=== PATIENT | female | born 1955 | race Caucasian/White ===

== ENCOUNTER 2019-09-10 11:33 | Emergency (ER) | payer MEDICARE ==
[~2019-09-10] VITALS: Ht 160 cm; Wt 68.2 kg
[2019-09-10 11:33] VITALS: BP 135/69
[~2019-09-10 11:33] MED LIST: AMIT10TA6 PO; CYAN10006 IM; DOCU-28 PO; DULO60CA45 PO; FERR1GRA2 PO; MAGN30TA2 PO; MORP15TA PO; MULT1TAB74 PO; PHEN-716 PO; PREG50CA PO; SULF1TAB49 PO
[2019-09-10] MEDS ORDERED: HYDROcodone/acetaminophen 10/325mg tab PO ONE (13:05)
[2019-09-10] MEDS ORDERED: ondansetron 4mg rapidly disintigrating tab PO ONE (13:05)
[2019-09-10] MEDS ORDERED: HYDR-4383 PO (13:28)
[2019-09-10] MEDS ORDERED: ONDA4TAB6 PO (13:28)
== END 2019-09-10 13:54 | disposition home or self-care (01) ==
LOC: ER 11:33
DX: S52.502A Unspecified fracture of the lower end of left radius, initial encounter for closed fracture (principal); G89.29 Other chronic pain; M79.7 Fibromyalgia; Z90.49 Acquired absence of other specified parts of digestive tract; Z90.710 Acquired absence of both cervix and uterus; Z98.84 Bariatric surgery status; Z85.3 Personal history of malignant neoplasm of breast; Z91.040 Latex allergy status; Z88.5 Allergy status to narcotic agent; Z88.6 Allergy status to analgesic agent; Z79.899 Other long term (current) drug therapy; W18.30XA Fall on same level, unspecified, initial encounter; Y93.01 Activity, walking, marching and hiking; Y92.89 Other specified places as the place of occurrence of the external cause; Y99.9 Unspecified external cause status
CPT/HCPCS: 29125; 73110; 99284

== ENCOUNTER 2022-02-23 15:31 | Emergency (ER) | payer MEDICARE ==
[~2022-02-23] VITALS: Ht 160 cm; Wt 71.4 kg
[~2022-02-23 15:31] MED LIST changes: -DULO60CA45 PO; +DULO60CA59 PO; +HYDR-4383 PO; +MULT-620 PO; -MULT1TAB74 PO; +ONDA4TAB6 PO
[2022-02-23 16:55] LABS: CLARITY,URINE CLEAR (Clear); GLUCOSE, URINE NEGATIVE (Neg); KETONES,URINE NEGATIVE (Neg); LEUKOCYTE ESTERASE ,URINE NEGATIVE (Neg); NITRITES, URINE NEGATIVE (Neg); OCCULT BLOOD,URINE NEGATIVE (Neg); PROTEIN,URINE NEGATIVE (Neg); UROBILINOGEN,URINE 0.2 E.U/dL (0.2-1.0)
[2022-02-23 17:00] LABS: COLOR,URINE STRAW (Yellow); UA COLLECTION TYPE CLN CATCH MIDSTREAM
[2022-02-23] MEDS ORDERED: HYDR-3965 PO (19:14)
[2022-02-23] MEDS ORDERED: HYDROcodone/acetaminophen 10/325mg tab PO ONE (19:15)
[2022-02-24 00:22] VITALS: BP 122/78
== END 2022-02-24 00:25 | disposition home or self-care (01) ==
LOC: ER 15:32
DX: G89.29 Other chronic pain (principal); M54.6 Pain in thoracic spine; M54.50 Low back pain, unspecified; R32 Unspecified urinary incontinence; M79.7 Fibromyalgia; Z85.3 Personal history of malignant neoplasm of breast; Z90.49 Acquired absence of other specified parts of digestive tract; Z90.710 Acquired absence of both cervix and uterus; Z98.84 Bariatric surgery status; Z72.89 Other problems related to lifestyle; Z88.8 Allergy status to other drugs, medicaments and biological substances; Z91.040 Latex allergy status; Z91.048 Other nonmedicinal substance allergy status; Z79.899 Other long term (current) drug therapy; W01.0XXA Fall on same level from slipping, tripping and stumbling without subsequent striking against object, initial encounter; Y93.89 Activity, other specified; Y92.89 Other specified places as the place of occurrence of the external cause; Y99.8 Other external cause status
CPT/HCPCS: 72128; 81003; 99284

== ENCOUNTER 2023-02-15 12:25 | Emergency (ER) | payer MEDICARE ==
[~2023-02-15] VITALS: Ht 157.5 cm; Wt 68.2 kg
[2023-02-15 12:38] VITALS: BP 163/73
[2023-02-15 13:16] LABS: BASOPHILS % (AUTO) 0.2 % (0-1); EOSINOPHILS % (AUTO) 0.5 % (0-6); HEMATOCRIT 39.5 % (35.0-45.0); HEMOGLOBIN 12.9 g/dl (12.0-16.0); LYMPHOCYTES # (AUTO) 1.5 X10'3 (1.1-4.8); LYMPHOCYTES % (AUTO) 23.7 % (21-51); MEAN CORPUSCULAR HEMOGLOBIN 28.9 PG (27.0-31.0); MEAN CORPUSCULAR HGB CONC 32.6 g/dL (33.0-36.5); MEAN CORPUSCULAR VOLUME 88.5 FL (78-98); MEAN PLATELET VOLUME 8.1 FL (7.4-10.4); MONOCYTES # (AUTO) 0.3 X10'3 (0-0.9); MONOCYTES % (AUTO) 5.3 % (2-12); NEUTROPHILS # (AUTO) 4.5 X10'3 (1.8-7.7); NEUTROPHILS % (AUTO) 70.3 % (42-75); PLATELET COUNT 234 X10'3 (140-440); RED BLOOD COUNT 4.46 X10'6 (4.20-5.60); RED CELL DISTRIBUTION WIDTH 13.8 % (11.5-14.5); WHITE BLOOD COUNT 6.4 X10'3 (4.5-11.0)
[2023-02-15 13:35] LABS: ALANINE AMINOTRANSFERASE 181 U/L (12-78); ALBUMIN 3.8 G/DL (3.4-5.0); ALBUMIN/GLOBULIN RATIO 1.4 (1.1-1.5); ALKALINE PHOSPHATASE 93 IU/L (46-116); ANION GAP 8 (8-16); ASPARTATE AMINO TRANSFERASE 61 U/L (10-37); BILIRUBIN,TOTAL 0.3 MG/DL (0.1-1.0); BLOOD UREA NITROGEN 13 MG/DL (7-18); BUN/CREATININE RATIO 22.8 (10.0-20.0); CALCIUM 9.4 MG/DL (8.5-10.1); CHLORIDE 105 MMOL/L (99-107); CREATININE 0.57 MG/DL (0.40-0.90); GLUCOSE 94 MG/DL (70-104); LIPASE 82 U/L (73-393); POTASSIUM 4.3 MMOL/L (3.5-5.1); SODIUM 140 MMOL/L (135-145); TOTAL CARBON DIOXIDE 27.2 MMOL/L (24-32); TOTAL PROTEIN 6.6 G/DL (6.4-8.2); eGFR > 90 ML/MIN
[2023-02-15] MEDS ORDERED: ondansetron 4mg rapidly disintigrating tab PO ONE (15:40)
[2023-02-15 16:14] LABS: CLARITY,URINE CLEAR (Clear); COLOR,URINE STRAW (Yellow); GLUCOSE, URINE NEGATIVE (Neg); KETONES,URINE 15 mg/dl (Neg); LEUKOCYTE ESTERASE ,URINE NEGATIVE (Neg); NITRITES, URINE NEGATIVE (Neg); OCCULT BLOOD,URINE NEGATIVE (Neg); PROTEIN,URINE NEGATIVE (Neg); UROBILINOGEN,URINE 0.2 E.U/dL (0.2-1.0)
[2023-02-15 16:20] LABS: UA COLLECTION TYPE CLN CATCH MIDSTREAM
[2023-02-15] MEDS ORDERED: DICY10CA88 PO (16:40)
[2023-02-15] MEDS ORDERED: ONDA4TAB12 PO (16:40)
[2023-02-15] MEDS ORDERED: dicyclomine 10 MG capsule PO ONE (16:45)
[2023-02-15] MEDS ORDERED: acetaminophen 325mg tablet PO ONE (16:55)
== END 2023-02-15 17:07 | disposition home or self-care (01) ==
LOC: ER 12:25
DX: R10.11 Right upper quadrant pain (principal); G89.29 Other chronic pain; M54.9 Dorsalgia, unspecified; Z90.49 Acquired absence of other specified parts of digestive tract; Z91.040 Latex allergy status; Z88.6 Allergy status to analgesic agent; Z88.1 Allergy status to other antibiotic agents; Z79.899 Other long term (current) drug therapy
CPT/HCPCS: 36415; 74176; 80053; 81003; 83690; 85025; 99284